=== PATIENT | male | born 1965 | race Caucasian/White ===

== ENCOUNTER 2016-12-06 07:07 | Emergency (ER) | payer SELFPAY ==
[~2016-12-06] VITALS: Ht 175.3 cm; Wt 79.2 kg
[2016-12-06 07:14] VITALS: BP 124/78
[2016-12-06] MEDS ORDERED: IBUPROFEN 200 MG TABLET ONE (08:15)
[2016-12-06] MEDS ORDERED: IBUPROFEN 200 MG TABLET PO ONE (08:30)
== END 2016-12-06 09:37 | disposition home or self-care (01) ==
LOC: ED 08:33
DX: J04.0 Acute laryngitis (principal); J02.9 Acute pharyngitis, unspecified
CPT/HCPCS: 87081; 87880; 99284